=== PATIENT | female | born 1985 | race Caucasian/White ===

== ENCOUNTER 2017-07-09 12:42 | Inpatient (IN) | payer BC ==
[2017-07-09 13:01] VITALS: BMI 29.8
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
[2017-07-09] MEDS ORDERED: IBUPROFEN 400 MG TABLET (FP) PO PRN (15:19)
[2017-07-09] MEDS ORDERED: MENTHOL/PHENOL 1 EACH UD MM PRN (15:19)
[2017-07-09] MEDS ORDERED: MAGNESIUM CITRATE 300 ML BOTTLE PO PRN (15:19)
[2017-07-09] MEDS ORDERED: MAG HYDROX/AL HYDROX/SIMETH 30 ML UNIT-DOSE CUP PO PRN (15:19)
[2017-07-09] MEDS ORDERED: LOPERAMIDE HCL 2 MG CAPSULE PO PRN (15:19)
[2017-07-09] MEDS ORDERED: hydrOXYzine PAMOATE 50 MG CAPSULE (FP) PO PRN (15:19)
[2017-07-09] MEDS ORDERED: ACETAMINOPHEN 325 MG TABLET (FP) PO PRN (15:19)
[2017-07-09] MEDS ORDERED: P-EPHED 60MG/TRIPROLIDI 2.5MG TABLET PO PRN (15:19)
[2017-07-09] MEDS ORDERED: MAGNESIUM HYDROX 2400MG/30ML ORAL SUSPENSION 30 ML CUP PO PRN (15:19)
[2017-07-09] MEDS ORDERED: guaiFENesin/D-METHORPHAN HB 10 ML UNIT-DOSE CUPS PO PRN (15:19)
[2017-07-09] MEDS ORDERED: METHADONE HCL 10 MG TABLET (FOR DETOX USE ONLY) PO ONE ×2 (17:00→23:00)
[2017-07-09] MEDS ORDERED: diazePAM 5 MG TABLET PO ONE (17:00)
[2017-07-09] MEDS ORDERED: MELATONIN 5 MG TABLETS PO PRN (22:00)
[2017-07-09] MEDS: THIAMINE HCL 100 MG TABLET (FP) PO SCH (22:09)
[2017-07-09] MEDS: diazePAM 5 MG TABLET PO SCH (22:09)
[2017-07-09] MEDS: cloNIDine HCL 0.1 MG TABLET PO SCH (22:09)
[2017-07-09] MEDS: CYCLOBENZAPRINE HCL 10 MG TABLET (FP) PO PRN (22:14)
[2017-07-10] MEDS: diazePAM 5 MG TABLET PO PRN ×2 (02:01→18:30)
[2017-07-10] MEDS: diazePAM 5 MG TABLET PO SCH ×3 (05:51→22:25)
[2017-07-10] MEDS ORDERED: METHADONE HCL 10 MG TABLET (FOR DETOX USE ONLY) PO SCH (10:00)
[2017-07-10 10:23] LABS: HEMATOCRIT 33.5 % (32.4-45.2); HEMOGLOBIN 11.4 GM/dL (10.7-15.3); MCHC 34.1 g/dl (32.0-36.0); MEAN CELL VOLUME 82.1 fl (80-96); MEAN PLT VOLUME 8.2 fl (7.5-11.1); PLATELET COUNT 206 K/MM3 (134-434); RBC 4.08 M/mm3 (3.60-5.2); RDW 12.8 % (11.6-15.6)
--- NOTE | 2017-07-10 10:43 | EKG ---
Test Reason : Blood Pressure : / mmHG Vent. Rate : 072 BPM Atrial Rate : 072 BPM P-R Int : 194 ms QRS Dur : 088 ms QT Int : 384 ms P-R-T Axes : 032 072 043 degrees QTc Int : 420 ms NORMAL SINUS RHYTHM NORMAL ECG NO PREVIOUS ECGS AVAILABLE Confirmed by MD Bryce, Ankush ([id number]) on 07/10/2017 10:42:37 AM Referred By: Confirmed By:Ankush Wu MD
[2017-07-10 10:50] LABS: ALBUMIN 3.1 g/dl (3.4-5.0); ANION GAP 4 (8-16); BLOOD UREA NITROGEN 23 mg/dL (7-18); CALCIUM 8.6 mg/dL (8.5-10.1); CHLORIDE 104 mmol/L (98-107); CO2 33 mmol/L (21-32); CREATININE 0.8 mg/dL (0.55-1.02); GLUCOSE,RANDOM 94 mg/dL (74-106); POTASSIUM 3.8 mmol/L (3.5-5.1); SGOT/AST 15 U/L (15-37); SGPT/ALT 27 U/L (12-78); SODIUM 141 mmol/L (136-145)
[2017-07-10 10:51] LABS: ALK PHOS 72 U/L (45-117); BILIRUBIN,TOTAL 0.1 mg/dL (0.2-1.0); TOT PROT 6.7 g/dl (6.4-8.2)
[2017-07-10] MEDS: PRENATAL VITAMINS W/ FOLIC ACID TABLET (FP) PO SCH (10:59)
[2017-07-10] MEDS: cloNIDine HCL 0.1 MG TABLET PO SCH ×2 (11:00→22:24)
--- NOTE | 2017-07-10 11:42 | PN ---
[facility] CIWA - CIWA Score Nausea/Vomitin-Mild Nausea/No Vomiting Muscle Tremors: 4-Moderate,w/Arms Extend Anxiety: 4-Mod. Anxious/Guarded Agitation: 4-Moderately Restless Paroxysmal Sweats: 1-Minimal Palms Moist Orientation: 0-Oriented Tacttile Disturbances: 1-Very Mild Itch/Numbness Auditory Disturbances: 0-None Visual Disturbances: 0-None Headache: 2-Mild CIWA-Ar Total Score: 17 BHS COWS - Scale Resting Pulse: 0= [place] 80 or Below Sweatin= Chills/Flushing Restless Observation: 1= Difficult to Sit Still Pupil Size: 0= Normal to Room Light Bone or Joint Aches: 2= Severe Diffuse Aches Runny Nose/ Eye Tearin= Runny Nose/Eyes GI Upset > 30mins: 2= Nausea/Diarrhea Tremor Observation of Outstretched Hands: 2= Slight Tremor Visible Yawning Observation: 2= >3x During Session Anxiety or Irritability: 2=Irritable/Anxious Goose Flesh Skin: 3=Piloerection COWS Score: 17 [facility] Progress Note (SOAP) Subjective: joint pain body ache sweat tremor restlessness anxiety trouble sleeping Objective: 07/10/17 11:42 Vital Signs Temperature 98.1 F 07/10/17 10:51 Pulse Rate 70 07/10/17 10:51 Respiratory Rate 18 07/10/17 10:51 Blood Pressure 90/60 07/10/17 10:51 O2 Sat by Pulse Oximetry (%) Laboratory Last Values WBC 5.0 K/mm3 (4.0-10.0) 07/10/17 07:00 RBC 4.08 M/mm3 (3.60-5.2) 07/10/17 07:00 Hgb 11.4 GM/dL (10.7-15.3) 07/10/17 07:00 Hct 33.5 % (32.4-45.2) 07/10/17 07:00 MCV 82.1 fl (80-96) 07/10/17 07:00 MCH 28.0 pg (25.7-33.7) 07/10/17 07:00 MCHC 34.1 g/dl (32.0-36.0) 07/10/17 07:00 RDW 12.8 % (11.6-15.6) 07/10/17 07:00 Plt Count 206 K/MM3 (134-434) 07/10/17 07:00 MPV 8.2 fl (7.5-11.1) 07/10/17 07:00 Sodium 141 mmol/L (136-145) 07/10/17 07:00 Potassium 3.8 mmol/L (3.5-5.1) 07/10/17 07:00 Chloride 104 mmol/L (98-107) 07/10/17 07:00 Carbon Dioxide 33 mmol/L (21-32) H 07/10/17 07:00 Anion Gap 4 (8-16) L 07/10/17 07:00 BUN 23 mg/dL (7-18) H 07/10/17 07:00 Creatinine 0.8 mg/dL (0.55-1.02) 07/10/17 07:00 Creat Clearance w eGFR > 60 (>60) 07/10/17 07:00 Random Glucose 94 mg/dL (74-106) 07/10/17 07:00 Calcium 8.6 mg/dL (8.5-10.1) 07/10/17 07:00 Total Bilirubin 0.1 mg/dL (0.2-1.0) L 07/10/17 07:00 AST 15 U/L (15-37) 07/10/17 07:00 ALT 27 U/L (12-78) 07/10/17 07:00 Alkaline Phosphatase 72 U/L (45-117) 07/10/17 07:00 Total Protein 6.7 g/dl (6.4-8.2) 07/10/17 07:00 Albumin 3.1 g/dl (3.4-5.0) L 07/10/17 07:00 lab noted Assessment: 07/10/17 11:43 withdrawal sx Plan: continue detox
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
[2017-07-10] MEDS: CYCLOBENZAPRINE HCL 10 MG TABLET (FP) PO PRN ×2 (18:30→22:24)
[2017-07-10] MEDS: THIAMINE HCL 100 MG TABLET (FP) PO SCH (22:24)
--- NOTE | 2017-07-11 09:25 | PN ---
S CIWA - CIWA Score Nausea/Vomitin Muscle Tremors: 3 Anxiety: 3 Agitation: 3 Paroxysmal Sweats: 3 Orientation: 0-Oriented Tacttile Disturbances: 2-Mild Itch/Numbness/Burn Auditory Disturbances: 0-None Visual Disturbances: 0-None Headache: 0-None Present CIWA-Ar Total Score: 17 BHS COWS - Scale Resting Pulse: 1= [place] 81-100 Sweatin=Flushed/Facial Moisture Restless Observation: 1= Difficult to Sit Still Pupil Size: 1= Pupils >than Normal Bone or Joint Aches: 2= Severe Diffuse Aches Runny Nose/ Eye Tearin= Nasal Congestion GI Upset > 30mins: 2= Nausea/Diarrhea Tremor Observation of Outstretched Hands: 2= Slight Tremor Visible Yawning Observation: 0= None Anxiety or Irritability: 2=Irritable/Anxious Goose Flesh Skin: 0=Smooth Skin COWS Score: 14 BHS Progress Note (SOAP) Subjective: interrupted sleep,sweats, nausea , lbp Objective: 07/11/17 10:30 Vital Signs Temperature 96.4 F L 07/11/17 09:23 Pulse Rate 87 07/11/17 09:23 Respiratory Rate 16 07/11/17 09:23 Blood Pressure 129/91 07/11/17 09:23 O2 Sat by Pulse Oximetry (%) Laboratory Tests 07/10/17 07/10/17 07:00 07:00 WBC 5.0 RBC 4.08 Hgb 11.4 Hct 33.5 MCV 82.1 MCH 28.0 MCHC 34.1 RDW 12.8 Plt Count 206 MPV 8.2 Sodium 141 Potassium 3.8 Chloride 104 Carbon Dioxide 33 H Anion Gap 4 L BUN 23 H Creatinine 0.8 Creat Clearance w eGFR > 60 Random Glucose 94 Calcium 8.6 Total Bilirubin 0.1 L AST 15 ALT 27 Alkaline Phosphatase 72 Total Protein 6.7 Albumin 3.1 L pt aox3 in nad lying in bed Assessment: 07/11/17 10:31 withdrawal sx's lbp Plan: cont. detox increase fluids flexeril tid.
[2017-07-11] MEDS ORDERED: METHADONE HCL 5 MG TABLET (FOR DETOX USE ONLY) PO SCH (10:00)
[2017-07-11] MEDS: diazePAM 5 MG TABLET PO SCH ×2 (10:31→22:11)
[2017-07-11] MEDS: cloNIDine HCL 0.1 MG TABLET PO SCH ×2 (10:31→22:11)
[2017-07-11] MEDS: PRENATAL VITAMINS W/ FOLIC ACID TABLET (FP) PO SCH (10:31)
[2017-07-11 14:28] LABS: URINE APPEARANCE CLEAR; URINE BILIRUBIN NEGATIVE (<2.0 mg/dL); URINE BLOOD NEGATIVE (NEGATIVE); URINE COLOR LTYELLOW; URINE GLUCOSE (UA) NEGATIVE (NEGATIVE); URINE KETONE NEGATIVE (NEGATIVE); URINE LEUK ESTERASE TRACE (NEGATIVE); URINE NITRITE NEGATIVE (NEGATIVE); URINE PROTEIN NEGATIVE (NEGATIVE); URINE UROBILINOGEN NEGATIVE mg/dL (0.2-1.0)
[2017-07-11 14:39] LABS: EPI CELLS RARE /HPF (FEW); URINE BACTERIA RARE /hpf (NONE SEEN); URINE MUCUS RARE
[2017-07-11] MEDS: CYCLOBENZAPRINE HCL 10 MG TABLET (FP) PO PRN ×2 (16:41→22:11)
[2017-07-11] MEDS: diazePAM 5 MG TABLET PO PRN (16:42)
[2017-07-11] MEDS: THIAMINE HCL 100 MG TABLET (FP) PO SCH (22:11)
[2017-07-12] MEDS: diazePAM 5 MG TABLET PO PRN ×2 (01:29→08:02)
--- NOTE | 2017-07-12 09:19 | DS ---
[facility] Detox Discharge Summary Admission Date: 07/09/17 Discharge Date: 07/12/17 - History Present History: Opioid Dependence, Sedative Dependence - Physical Exam Results Vital Signs: Vital Signs Temperature 97.0 F L 07/12/17 06:00 Pulse Rate 65 07/12/17 06:00 Respiratory Rate 18 07/12/17 06:00 Blood Pressure 111/77 07/12/17 06:00 O2 Sat by Pulse Oximetry (%) Pertinent Admission Physical Exam Findings: withd Vital Signs Temperature 97.0 F L 07/12/17 06:00 Pulse Rate 65 07/12/17 06:00 Respiratory Rate 18 07/12/17 06:00 Blood Pressure 111/77 07/12/17 06:00 O2 Sat by Pulse Oximetry (%) Laboratory Last Values WBC 5.0 K/mm3 (4.0-10.0) 07/10/17 07:00 RBC 4.08 M/mm3 (3.60-5.2) 07/10/17 07:00 Hgb 11.4 GM/dL (10.7-15.3) 07/10/17 07:00 Hct 33.5 % (32.4-45.2) 07/10/17 07:00 MCV 82.1 fl (80-96) 07/10/17 07:00 MCH 28.0 pg (25.7-33.7) 07/10/17 07:00 MCHC 34.1 g/dl (32.0-36.0) 07/10/17 07:00 RDW 12.8 % (11.6-15.6) 07/10/17 07:00 Plt Count 206 K/MM3 (134-434) 07/10/17 07:00 MPV 8.2 fl (7.5-11.1) 07/10/17 07:00 Sodium 141 mmol/L (136-145) 07/10/17 07:00 Potassium 3.8 mmol/L (3.5-5.1) 07/10/17 07:00 Chloride 104 mmol/L (98-107) 07/10/17 07:00 Carbon Dioxide 33 mmol/L (21-32) H 07/10/17 07:00 Anion Gap 4 (8-16) L 07/10/17 07:00 BUN 23 mg/dL (7-18) H 07/10/17 07:00 Creatinine 0.8 mg/dL (0.55-1.02) 07/10/17 07:00 Creat Clearance w eGFR > 60 (>60) 07/10/17 07:00 Random Glucose 94 mg/dL (74-106) 07/10/17 07:00 Calcium 8.6 mg/dL (8.5-10.1) 07/10/17 07:00 Total Bilirubin 0.1 mg/dL (0.2-1.0) L 07/10/17 07:00 AST 15 U/L (15-37) 07/10/17 07:00 ALT 27 U/L (12-78) 07/10/17 07:00 Alkaline Phosphatase 72 U/L (45-117) 07/10/17 07:00 Total Protein 6.7 g/dl (6.4-8.2) 07/10/17 07:00 Albumin 3.1 g/dl (3.4-5.0) L 07/10/17 07:00 Urine Color Ltyellow 07/11/17 09:20 Urine Appearance Clear 07/11/17 09:20 Urine pH 5.0 (5.0-8.0) 07/11/17 09:20 Ur Specific [place] 1.017 (1.001-1.035) 07/11/17 09:20 Urine Protein Negative (NEGATIVE) 07/11/17 09:20 Urine Glucose (UA) Negative (NEGATIVE) 07/11/17 09:20 Urine Ketones Negative (NEGATIVE) 07/11/17 09:20 Urine Blood Negative (NEGATIVE) 07/11/17 09:20 Urine Nitrite Negative (NEGATIVE) 07/11/17 09:20 Urine Bilirubin Negative (<2.0 mg/dL) 07/11/17 09:20 Urine Urobilinogen Negative mg/dL (0.2-1.0) 07/11/17 09:20 Ur Leukocyte Esterase Trace (NEGATIVE) 07/11/17 09:20 Urine WBC (Auto) 3 /hpf (3-5) 07/11/17 09:20 Urine RBC (Auto) 1 /hpf (0-3) 07/11/17 09:20 Ur Epithelial Cells Rare /HPF (FEW) 07/11/17 09:20 Urine Bacteria Rare /hpf (NONE SEEN) 07/11/17 09:20 Urine Mucus Rare 07/11/17 09:20 RPR Titer Nonreactive (NONREACTIVE) 07/10/17 07:00 lab noted - Treatment Hospital Course: Detox Protocol Followed, Responded well Patient has Accepted a Rehab Referral to: as per counslor arranged - Medication Discharge Medications: Ambulatory Orders Dextroamphetamine/Amphetamine [Adderall Xr 20 mg Capsule] 20 mg PO DAILY - Diagnosis (1) Opioid dependence with withdrawal Current Visit: Yes Status: Acute (2) Uncomplicated sedative, hypnotic or anxiolytic withdrawal Current Visit: Yes Status: Acute - AMA Did Patient Leave Against Medical Advice: Yes
--- NOTE | 2017-07-12 09:23 | PN ---
S Progress Note (SOAP) Subjective: I want to go now this is not for me does not work Objective: 07/12/17 09:21 alert oriented x 3 no acute distress physical examine refusal Assessment: 07/12/17 09:22 self terminated heroin and benzo detox regimen 07/12/17 09:23 Plan: health teaching on benefit of healthy life style and the advantage of naloxone
[2017-07-12 10:25] VITALS: BP 110/81; PULSE 100; TEMP 97.3
[2017-07-13] MEDS ORDERED: diazePAM 5 MG TABLET PO SCH (10:00)
[2017-07-13] MEDS ORDERED: METHADONE HCL 10 MG TABLET (FOR DETOX USE ONLY) PO SCH (10:00)
[2017-07-14] MEDS ORDERED: METHADONE HCL 5 MG TABLET (FOR DETOX USE ONLY) PO SCH (06:00)
== END 2017-07-12 08:50 | disposition left against medical advice (07) | DRG 894 ==
LOC: YASAS 12:42 → Y6N 16:41
PROVIDERS: ADMIT Internal Medicine; ATTEND Internal Medicine
PROC: HZ2ZZZZ Detoxification Services for Substance Abuse Treatment (ICD-10-PCS; principal; 2017-07-09)
DX: F11.23 Opioid dependence with withdrawal (principal); F13.230 Sedative, hypnotic or anxiolytic dependence with withdrawal, uncomplicated; F17.210 Nicotine dependence, cigarettes, uncomplicated; F19.24 Other psychoactive substance dependence with psychoactive substance-induced mood disorder; F32.9 Major depressive disorder, single episode, unspecified; F41.9 Anxiety disorder, unspecified; F90.9 Attention-deficit hyperactivity disorder, unspecified type; M54.2 Cervicalgia; M54.5 Low back pain
CPT/HCPCS: 36415; 80053; 81003; 81015; 85027; 86593; 93005; 93010; J0735